=== PATIENT | male | born 1955 | race Caucasian/White ===

== ENCOUNTER 2016-11-26 09:54 | Outpatient (CLI) ==
[2014-12-25 14:57] VITALS: BMI 35.5
--- NOTE | 2016-11-26 11:21 | DI ---
EXAM: Pelvis and bilateral hips HISTORY: Acute right-sided low back pain COMPARISON: None TECHNIQUE: Single view pelvis and single frog-leg view right and left hip were performed FINDINGS: Sacroiliac joints intact. Sacral arcuate lines intact. There are degenerative changes i n the lumbar spine, incompletely imaged. Mild to moderate osteoarthritis right hip with joint space narrowing and osteophyte formation. Mild osteoarthritis left hip with joint space narrowing and os teophyte formation. No fracture. No focal soft tissue abnormality. IMPRESSION: 1. Mild to moderate osteoarthritis right hip and mild osteoarthritis left hip. 2. Degenerative changes in the lower spine, incompletely imaged.
--- NOTE | 2016-11-27 08:33 | MRI ---
EXAM: Lumbar spine MRI without contrast. HISTORY: Acute right-sided low back pain. COMPARISON: Lumbar spine MRI 05/14/[address] scan 12/25/2014. TECHNIQUE: Multiplanar, multisequence MR images were acquired of the lumbar spine without contrast. The study is degraded by decreased [id number] which limits spatial and contrast resolution. FINDINGS: Five lumbar-type vertebra are present. There is minor mid lumbar dextroscoliosis and acc entuation of the usual lumbar lordosis. There is 4.5 mm retrolisthesis of L2 on L3, 1.5 mm anteroli sthesis of L4 on L5 and 1.5 mm anterolisthesis of L5 on S1. Intrinsic bone marrow signal is heterog eneous due to fatty infiltration and degenerative endplate changes. Large ventral and lateral osteo phytes are present in the lower thoracic and lumbar spine and there is desiccation of the interverte bral discs. Disc space narrowing with moderate degenerative endplate changes are present from T10-1 1 through T12-L1. There is mild disc space narrowing and minor end plate irregularity at L1-2. At L2-3, there is osteophytosis with marked disc space narrowing and mild degenerative endplate changes which are greatest left laterally. There is mild to moderate posterior disc space narrowing at L3- 4 and L4-5. At L5-S1, there is irregularity of the S1 superior endplate and mild posterior disc spa ce narrowing with vacuum phenomenon. Chronic Schmorl's nodes are present from T10 to L3 and at S1. Conus medullaris ends at T12-L1 and has normal signal intensity. Canal diameter is developmentally narrow due to congenitally short pedicles. The visualized liver, spleen and kidneys are unremarkable. Increased fat is present in the medial p osterior paraspinous muscles from L2-3 to the sacrum in this patient who has undergone posterior dec ompressive hemilaminectomies at L2-3 and L3-4. T10-11: On the sagittal images, there is a mild diffuse disc osteophyte complex and a right paracen tral disc protrusion which effaces the right lateral recess and mildly indents the right ventrolater al thoracic cord without central canal stenosis. The neural foramina are poorly visualized. Howeve r, there is bilateral facet hypertrophy and probable moderate to marked bilateral foraminal stenosis . T11-12: There is a mild disc bulge with a poorly visualized probable small right posterolateral dis c protrusion that mildly effaces the right lateral recess. Mild left hypertrophic facet arthropathy is present. There is mild to moderate left neural foraminal stenosis. T12-L1: There is a mild disc bulge that is asymmetric to the right and a small left paracentral dis c extrusion that extends below the disc level. There is thickening of the dura along the anterior t hecal sac and of the annulus fibrosis which mildly effaces the anterior subarachnoid space. Mild bi lateral facet and ligamentum flavum hypertrophy is present. There is prominent dorsal epidural fat. This causes mild to moderate spinal stenosis and mild to moderate left and mild right neural babatunde inal stenosis. AP diameter of the thecal sac is 7.3 mm. L1-2: There is a mild disc bulge that is asymmetric to the left and mild bilateral hypertrophic fac et arthropathy and ligamentum flavum hypertrophy. There is prominent dorsal epidural fat and these findings cause moderate spinal stenosis and mild bilateral foraminal stenosis. AP diameter of the t hecal sac is 6.4 mm. L2-3: There are postoperative left hemilaminectomy and partial medial left facetectomy changes with partial resection of the lower half of the L2 posterior spinous process and in the L3 posterior spi nous process. There is a mild to moderate diffuse disc osteophyte complex with a small focus of sof t tissue signal that extends below the disc space in the midline compatible with a small focus of gr anulation tissue or herniated disc fragment. Residual right greater than left facet hypertrophy is present and there is moderate left and mild to moderate right neural foraminal stenosis. There is t riangulation of the thecal sac without spinal stenosis. L3-4: There are postoperative right greater than left partial medial facetectomy and right hemilami nectomy changes. There is a mild disc bulge that is asymmetric to the right with small posterior an d right lateral endplate osteophytes. Residual left greater than right hypertrophic facet arthropat hy is present and there is mild spinal stenosis with narrowing of the thecal sac laterally bilateral ly and mild to moderate left and marked right neural foraminal stenosis with encroachment on the rig ht L3 nerve exiting the neural foramen. L4-5: There is anterolisthesis of L4 on L5 and there is a pseudo disc bulge/posterior disc bulge wi th a small focus of more prominent soft tissue signal along the midline margin of the disc with hype rintense T2 signal. This may represent a small herniated disc fragment. Marked bilateral hypertrop hic facet arthropathy and ligamentum flavum hypertrophy is present and there is mild to moderate spi nal stenosis and moderate right and severe left neural foraminal stenosis with encroachment on both L4 nerves. AP diameter of the thecal sac is 7.3 mm. L5-S1: There is anterolisthesis of L5 on S1 and there is a minor diffuse disc bulge and marked righ t and moderate left hypertrophic facet arthropathy. There is marked narrowing of the thecal sac and moderate bilateral foraminal stenosis. There is encroachment on both L5 nerves exiting the neural foramina. IMPRESSION: 1. Extensive lumbar and lower thoracic degenerative spondylosis which has not significantly changed compared to 05/14/2016. 2. Mild L3-4, mild to moderate T12-L1 and L4-5, moderate L1-2 spinal stenosis and marked L5-S1 spin al stenosis. 3. Multilevel foraminal stenosis. 4. Postoperative decompressive laminectomy changes L2-3 and L3-4.
== END 2016-11-26 09:55 | disposition home or self-care (01) ==
LOC: RAD 09:54
PROVIDERS: ATTEND Family Medicine
DX: M54.41 Lumbago with sciatica, right side (principal)

== ENCOUNTER 2017-01-22 09:00 | Outpatient (RCR) ==
[2014-12-25 14:57] VITALS: BMI 35.5
--- NOTE | 2017-01-01 10:55 | RS.OPPTEV2 ---
Date of Note: 01/01/17 Visit #: 1 Date of Evaluation: 01/01/17 Payer Source: Medicaid Date of Onset/Injury/Change in Status: 11/02/16 Surgery Performed?: No Treatment Diagnosis: back pain with LLE radicular pain History of Condition/Mechanism of Injury:: had back surgery in 1985. He did well until last yr when he was on a ladder and his foot slipped causing him to fall. He was carrying a box while descending the ladder. He did not fall far but did land very hard on the floor. He was sent to the hospital and told he had a pinched nerve. He was given pain medication which he did not take very long. He states he did get better but did not completely achieve resolution of pain. He then began having worsening of the back pain a couple months ago and now has radicular pain down the LLE into his calf. He states he works at [employer] in the [place] and has to lift all the time. He believes this is what injured his back again. Prior Level of Function.....Patient was independent with: ADL's, Self Care, Work /Vocation, Caregiving, Ambulation/Mobility, Community Integration/Access Functional Limitations: Sleep, Self Care, ADL's, Reaching, Pushing, Pulling, Lifting, Carrying, Sitting, Standing, Bending, Squatting, Ambulation, Community Access/Integration Medical History Medical History: Hypertension, Diabetes, Arthritis Medical History Comments:: Kidney disease Surgical History: Lumbar Spine Surgical History Comments:: CTS with releases bilaterally. Smoking Status: Former smoker Diagnostic Testing/Imaging:: MRI recently demonstrated significant degenerative changes. He has testing to be performed on his kidneys this month to rule out problems. Hx Home Medications: zesteril Patient's Goals: Eliminate the back pain. Pain Assessment - Pain Description Pain Location: Center of lumbar spine with LLE radicular pain Pain Description: Burning Current Pain Intensity: 7/10 Worst Pain Intensity: 10/10 Other Comments regarding Pain:: Sitting relieves his pain completely. Functional Outcome Measure Oswestry LBP: 33 - G Codes & Severity Modifier G Codes & Modifier: NA Source of G Code score: NA Observation - Observation Posture: Decreased Lumbar Lordosis General Range of Motion: Bilateral hamstrings are minimally tight Muscle Strength: RLE 5/5 and LLE 4/5 - ROM Lumbar Flexion: Hand reach to Mid-Thighs Sidebending to Left: Reach to Lateral Joint Line Sidebending to Right: Reach to Lateral Joint Line Lumbar Spine ROM Limitations: Pain Comments: Significant pain with flexion - Special Tests SLR Test: Positive Left (SLR to 44 degrees) Seated Dural Stretch Test: Positive Left Palpation Palpation Findings: None/Normal Sensation - Sensation Left Lower Extremity: Impaired Sensation Description: Numbness (LLE all the way to the foot intermittently.) Interventions - Exercise/Activities/Manual Therapy Exercises/Activities: NA Manual Therapy: NA - Charges Total Direct Minutes: 45 Total Treatment Time: 45 Procedures billed for this date of service:: PT Esperanza (Medium) Assessment Assessment: Worsening lower back and LLE pain that is positive for neurotension signs. He has decreased lumbar and BLE ROM and minimal weakness of the LLE noted. Patient Education: Education of diagnosis, Body/Joint mechanics, Activity Modification, Education of Plan of Care Rehab Potential: Good Short Term Goals Goal #1: Patient independent in basic HEP. Goal to be met by: 01/16/17 Goal #2: Decrease pain symptoms 25% Goal to be met by: 01/16/17 Goal #3: Improve sleep quality 50% Goal to be met by: 01/16/17 Goal #4: Patient is able to stand for 20 minutes or more with minimal pain. Goal to be met by: 01/16/17 Software Engineering Specialist Goals Goal #1: Eliminate LLE radicular symptoms below the knee. Goal to be met by: 01/30/17 Goal #2: Average pain rating 3-4/10 and intermittent. Goal to be met by: 01/30/17 Goal #3: Oswestry LBP score 20/50 Goal to be met by: 01/30/17 Goal #4: Independent with DC HEP. Goal to be met by: 01/30/17 Plan - Treatment to be Provided Procedures: Therapeutic Exercises, Therapeutic Activity, Manual Therapy, Patient Education Modalities: Electrical Stimulation, Class IV Laser, Cryotherapy, Hot Packs - Treatment Plan Frequency: 3 X week Duration: 4 weeks ORDER # VISITS AND/OR THROUGH DATE: 01/30/2017 - Treatment Code (1) Lower back pain Qualifiers: Chronicity: chronic Back pain laterality: midline Sciatica presence : with sciatica Sciatica laterality: sciatica of left side Qualified Description: Chronic midline low back pain with left-sided sciatica Qualifier Code(s): (M54.42) Lumbago with sciatica, left side, (G89.29) Other chronic pain
--- NOTE | 2017-01-02 10:03 | RS.OPPTDN ---
Subjective Date of Note: 01/02/17 Visit #: 2 Date of Evaluation: 01/01/17 Payer Source: Medicaid Treatment Diagnosis: back pain with LLE radicular pain Current Subjective/complaints:: Reports tolerable pain this morning,but the pain tends to increase as the day progresses. Pain Assessment - Pain Description Pain Location: Center of lumbar spine with LLE radicular pain Pain Description: Burning, Dull, Aching Current Pain Intensity: 4/10 - Treatment Modality: Electrical Stim Unattended Parameters/Method Applied: 20 mins. high volt to lumbar and L gluteal area, channel 1 @ 135 pv to lumbar,channel 2 @ 140 pv to L gluteals. Patient Position: Supine - Heat/Cryotherapy Treatment: Hot Pack (concurrent with e-stim) Interventions - Exercise/Activities/Manual Therapy Exercises/Activities: 20 mins, instruction in SKTC,DKTC,90/90 hamstring stretches,piriformis stretches,LTR. Total minutes of Exercise: 20 Manual Therapy: NA Total minutes of Manual Therapy: 0 HOME EXERCISE PROGRAM: SKTC,DKTC,90/90 hamstringstretch,piriformis stretch, LTR.Recommended 2-3x/day in PAIN FREE ROM. - Charges Total Direct Minutes: 20 Total Treatment Time: 40 Procedures billed for this date of service:: hp,e-stim,ex 1 Assessment: Patient has increased pain in the L lumbar and L hip with piriformis stretches today.He has antalgic gait present when entering/exiting clinic.He is attentive to recommendations form the therapy staff. Patient Education: Education of diagnosis, Body/Joint mechanics, Home Exercise Program, Home Safety, Activity Modification, Education of Plan of Care Patient demonstrates compliance with HEP?: Yes (Initiated today.) Short Term Goals Goal #1: Patient independent in basic HEP. Goal to be met by: 01/16/17 Progress towards Goal:: Progressing Goal #2: Decrease pain symptoms 25% Goal to be met by: 01/16/17 Goal #3: Improve sleep quality 50% Goal to be met by: 01/16/17 Goal #4: Patient is able to stand for 20 minutes or more with minimal pain. Goal to be met by: 01/16/17 Detention Goals Goal #1: Eliminate LLE radicular symptoms below the knee. Goal to be met by: 01/30/17 Goal #2: Average pain rating 3-4/10 and intermittent. Goal to be met by: 01/30/17 Goal #3: Oswestry LBP score 20/50 Goal to be met by: 01/30/17 Goal #4: Independent with DC HEP. Goal to be met by: 01/30/17 Plan PLAN OF CARE EXPIRES ON:: 01/30/17 ORDER # VISITS AND/OR THROUGH DATE: 01/30/2017 PLAN: Continue Plan of Care
--- NOTE | 2017-01-06 10:08 | RS.OPPTDN ---
Subjective Date of Note: 01/06/17 Visit #: 3 Date of Evaluation: 01/01/17 Payer Source: Medicaid Treatment Diagnosis: back pain with LLE radicular pain Current Subjective/complaints:: Patient reports doing his stretches at home , has muscle soreness in the upper thighs. Pain Assessment - Pain Description Pain Location: Center of lumbar spine with LLE radicular pain Pain Description: Burning, Dull, Aching Current Pain Intensity: 3 at rest,elevates the longer he is on his feet. Worst Pain Intensity: 7-8 - Treatment Modality: Electrical Stim Unattended Parameters/Method Applied: 20 mins. high volt,channel 1 @ 150 pv,channel 2 @ 165 pv to lumbar and L hip. Patient Position: Supine - Heat/Cryotherapy Treatment: Hot Pack (concurrent with e-stim) Interventions - Exercise/Activities/Manual Therapy Exercises/Activities: 20 mins, of SKTC,DKTC,90/90 hamstring stretches, piriformis stretches,LTR.Added SI muscle energy exercises of resisted hip flexion,resisted knee extension in hooklying. Total minutes of Exercise: 20 Manual Therapy: NA Total minutes of Manual Therapy: 0 HOME EXERCISE PROGRAM: SKTC,DKTC,90/90 hamstringstretch,piriformis stretch, LTR.Recommended 2-3x/day in PAIN FREE ROM. - Charges Total Direct Minutes: 20 Total Treatment Time: 40 Procedures billed for this date of service:: hp,e-stim,ex 1 Assessment: Patient has improved hamstring extensibility today .He reports stretch discomfort ,but no elevated back pain with exercises.He is motivated to improve.His job requires standing for long periods on concrete floors at [employer],and the pain elevates the longer he is on his feet. Patient Education: Education of diagnosis, Body/Joint mechanics, Home Exercise Program, Home Safety, Activity Modification, Education of Plan of Care Patient demonstrates compliance with HEP?: Yes Short Term Goals Goal #1: Patient independent in basic HEP. Goal to be met by: 01/16/17 Progress towards Goal:: Progressing Goal #2: Decrease pain symptoms 25% Goal to be met by: 01/16/17 Progress towards Goal:: Progressing Goal #3: Improve sleep quality 50% Goal to be met by: 01/16/17 Goal #4: Patient is able to stand for 20 minutes or more with minimal pain. Goal to be met by: 01/16/17 Custodial Goals Goal #1: Eliminate LLE radicular symptoms below the knee. Goal to be met by: 01/30/17 Goal #2: Average pain rating 3-4/10 and intermittent. Goal to be met by: 01/30/17 Goal #3: Oswestry LBP score 20/50 Goal to be met by: 01/30/17 Goal #4: Independent with DC HEP. Goal to be met by: 01/30/17 Plan PLAN OF CARE EXPIRES ON:: 01/30/17 ORDER # VISITS AND/OR THROUGH DATE: 01/30/2017 PLAN: Continue Plan of Care
--- NOTE | 2017-01-08 09:59 | RS.OPPTDN ---
Subjective Date of Note: 01/08/17 Visit #: 4 Date of Evaluation: 01/01/17 Payer Source: Medicaid Treatment Diagnosis: back pain with LLE radicular pain Current Subjective/complaints:: Patient reports the pain level increases as the day progresses at work due to walking alot on concrete floors. Pain Assessment - Pain Description Pain Location: Center of lumbar spine with LLE radicular pain Pain Description: Burning, Dull, Aching Current Pain Intensity: 3 at rest,elevates the longer he is on his feet. - Treatment Modality: Electrical Stim Unattended Parameters/Method Applied: 20 mins. high volt to lumbar,channel 1 @ 145 pv, channel 2 @ 155 pv. Patient Position: Supine - Heat/Cryotherapy Treatment: Hot Pack (concurrent with e-stim) Interventions - Exercise/Activities/Manual Therapy Exercises/Activities: 20 mins, HEP review of stretches,then instructed in postural pullbacks at different levels using black theraband,recommended 3/15 reps.,2-3 x/day. Total minutes of Exercise: 20 Manual Therapy: NA Total minutes of Manual Therapy: 0 HOME EXERCISE PROGRAM: SKTC,DKTC,90/90 hamstringstretch,piriformis stretch, LTR.Recommended 2-3x/day in PAIN FREE ROM. - Charges Total Direct Minutes: 20 Total Treatment Time: 40 Procedures billed for this date of service:: hp,e-stim,ex Assessment: Patient has good return demo of theraband exercises today,continues to be motivated to improve.His morning pain is less intense,and it continues to vary based upon the amount of activity at work ,especially with prolonged standing. Patient Education: Education of diagnosis, Body/Joint mechanics, Home Exercise Program, Home Safety, Activity Modification, Education of Plan of Care Patient demonstrates compliance with HEP?: Yes Short Term Goals Goal #1: Patient independent in basic HEP. Goal to be met by: 01/16/17 Progress towards Goal:: Progressing Goal #2: Decrease pain symptoms 25% Goal to be met by: 01/16/17 Progress towards Goal:: Progressing Goal #3: Improve sleep quality 50% Goal to be met by: 01/16/17 Goal #4: Patient is able to stand for 20 minutes or more with minimal pain. Goal to be met by: 01/16/17 Progress towards Goal:: Progressing [employer] Goals Goal #1: Eliminate LLE radicular symptoms below the knee. Goal to be met by: 01/30/17 Goal #2: Average pain rating 3-4/10 and intermittent. Goal to be met by: 01/30/17 Progress towards goal: Progressing Goal #3: Oswestry LBP score 20/50 Goal to be met by: 01/30/17 Goal #4: Independent with DC HEP. Goal to be met by: 01/30/17 Progress towards goal: Progressing Plan PLAN OF CARE EXPIRES ON:: 01/30/17 ORDER # VISITS AND/OR THROUGH DATE: 01/30/2017 PLAN: Continue Plan of Care
--- NOTE | 2017-01-12 09:45 | RS.OPPTDN ---
Subjective Date of Note: 01/12/17 Visit #: 5 Date of Evaluation: 01/01/17 Payer Source: Medicaid Treatment Diagnosis: back pain with LLE radicular pain Current Subjective/complaints:: Patient states he is doing fine this morning. States standing on concrete at work really aggravates his back. States when he sits on the couch at home, he can get a little relief by sitting with the left LE tucked under him. Reports by the time he works his shift, his pain is bad. States he is performing his exercises at home. Pain Assessment - Pain Description Pain Location: Center of lumbar spine with LLE radicular pain Pain Description: Burning, Dull, Aching Current Pain Intensity: 3 at rest,elevates the longer he is on his feet. - Treatment Modality: Electrical Stim Unattended Parameters/Method Applied: 4 large pads, one lead across the lumbar spine and one lead to left SI and superior gluteal region X 20 mins HVGS. Peak volts up to 200 Patient Position: Supine - Heat/Cryotherapy Treatment: Hot Pack (with Estim to low back) Interventions - Exercise/Activities/Manual Therapy Exercises/Activities: X 12 mins, Assisted with stretching to bilateral LE's of HS, SKTC, and piriformis. Left Piriformis is tight compared to the right. Manual Therapy: NA HOME EXERCISE PROGRAM: SKTC,DKTC,90/90 hamstringstretch,piriformis stretch, LTR.Recommended 2-3x/day in PAIN FREE ROM. - Charges Total Direct Minutes: 12 mins Total Treatment Time: 32 mins Procedures billed for this date of service:: Hp, Estim, EX Assessment: Patient reports continued pain in low back and LLE with working on concrete. He presents to be compliant with HEP. Patient demonstrates compliance with HEP?: Yes Short Term Goals Goal #1: Patient independent in basic HEP. Goal to be met by: 01/16/17 Progress towards Goal:: Progressing Goal #2: Decrease pain symptoms 25% Goal to be met by: 01/16/17 Progress towards Goal:: Progressing Goal #3: Improve sleep quality 50% Goal to be met by: 01/16/17 Goal #4: Patient is able to stand for 20 minutes or more with minimal pain. Goal to be met by: 01/16/17 Progress towards Goal:: Progressing Director Data Analytics Goals Goal #1: Eliminate LLE radicular symptoms below the knee. Goal to be met by: 01/30/17 Goal #2: Average pain rating 3-4/10 and intermittent. Goal to be met by: 01/30/17 Progress towards goal: Progressing Goal #3: Oswestry LBP score 20/50 Goal to be met by: 01/30/17 Goal #4: Independent with DC HEP. Goal to be met by: 01/30/17 Progress towards goal: Progressing Plan PLAN OF CARE EXPIRES ON:: 01/30/17 ORDER # VISITS AND/OR THROUGH DATE: 01/30/2017 PLAN: Continue Plan of Care
--- NOTE | 2017-01-15 10:25 | RS.OPPTDN ---
Subjective Date of Note: 01/15/17 Visit #: 6 Date of Evaluation: 01/01/17 Payer Source: Medicaid Treatment Diagnosis: back pain with LLE radicular pain Current Subjective/complaints:: Patient feels the therapy is helping ,and the pain is more localized,pointing the borders of his sacrum.He is inquiring about doing crunches.He is instructed to do them in a short ROM if pain free. Pain Assessment - Pain Description Pain Location: Center of lumbar spine with LLE radicular pain Pain Description: Burning, Dull, Aching Current Pain Intensity: 3 at rest,elevates the longer he is on his feet. Worst Pain Intensity: 6 at work ,later in the day. - Treatment Modality: Electrical Stim Unattended Parameters/Method Applied: 20 mins. high volt,to lumbar,channel 1 @ 145 pv, channel 2 @ 140 pv. Patient Position: Supine - Heat/Cryotherapy Treatment: Hot Pack (concurrent with e-stim) Interventions - Exercise/Activities/Manual Therapy Exercises/Activities: X 10 mins, Assisted with stretching to bilateral LE's of HS, SKTC, and piriformis. Left Piriformis is tight compared to the right.Patient gives return demo of abdominal crunches correctly at end of session. Total minutes of Exercise: 10 Manual Therapy: NA Total minutes of Manual Therapy: 0 HOME EXERCISE PROGRAM: SKTC,DKTC,90/90 hamstringstretch,piriformis stretch, LTR.Recommended 2-3x/day in PAIN FREE ROM. - Charges Total Direct Minutes: 10 Total Treatment Time: 30 Procedures billed for this date of service:: hp,e-stim,ex 1 Assessment: Patient progresing ,has much improved hamstring extensibility.He reports no increased back pain with exercises in supine or hooklying.He is compliant to HEP and highly motivated to improve. Patient Education: Education of diagnosis, Body/Joint mechanics, Home Exercise Program, Home Safety, Activity Modification, Education of Plan of Care Patient demonstrates compliance with HEP?: Yes Short Term Goals Goal #1: Patient independent in basic HEP. Goal to be met by: 01/16/17 Progress towards Goal:: Partially Met Goal #2: Decrease pain symptoms 25% Goal to be met by: 01/16/17 Progress towards Goal:: Progressing Goal #3: Improve sleep quality 50% Goal to be met by: 01/16/17 Progress towards Goal:: Progressing Goal #4: Patient is able to stand for 20 minutes or more with minimal pain. Goal to be met by: 01/16/17 Progress towards Goal:: Progressing Director Regulatory Compliance Goals Goal #1: Eliminate LLE radicular symptoms below the knee. Goal to be met by: 01/30/17 Progress towards goal: Progressing Goal #2: Average pain rating 3-4/10 and intermittent. Goal to be met by: 01/30/17 Progress towards goal: Progressing Goal #3: Oswestry LBP score 20/50 Goal to be met by: 01/30/17 Goal #4: Independent with DC HEP. Goal to be met by: 01/30/17 Progress towards goal: Progressing Plan PLAN OF CARE EXPIRES ON:: 01/30/17 ORDER # VISITS AND/OR THROUGH DATE: 01/30/2017 PLAN: Continue Plan of Care
--- NOTE | 2017-01-20 10:05 | RS.OPPTDN ---
Subjective Date of Note: 01/20/17 Visit #: 7 Date of Evaluation: 01/01/17 Payer Source: Medicaid Treatment Diagnosis: back pain with LLE radicular pain Current Subjective/complaints:: Patient enters clinic today with guarded posture ,along with antalgic gait.Reports working for 10 hours and 15 mins. at [employer] yesterday. Pain Assessment - Pain Description Pain Location: Center of lumbar spine with LLE radicular pain Pain Description: Burning, Dull, Aching Current Pain Intensity: 6-7 with walking today - Treatment Modality: Electrical Stim Unattended Parameters/Method Applied: 20 mins. high volt ,channel 1 and 2 @ 205 pv. Patient Position: Supine - Heat/Cryotherapy Treatment: Hot Pack (concurrent with e-stim) Interventions - Exercise/Activities/Manual Therapy Exercises/Activities: X 20 mins, Assisted with stretching to bilateral LE's of HS, SKTC, and piriformis,emphasis on L piriformis as it is tighter than the R. Total minutes of Exercise: 20 Manual Therapy: NA Total minutes of Manual Therapy: 0 HOME EXERCISE PROGRAM: SKTC,DKTC,90/90 hamstringstretch,piriformis stretch, LTR.Recommended 2-3x/day in PAIN FREE ROM. - Charges Total Direct Minutes: 20 Total Treatment Time: 40 Procedures billed for this date of service:: hp,e-stim,ex 1 Assessment: Patient is more guarded today due to increased low back pain , especially the L lumbar area.He does have improved LTR in hooklying position, less antalgic gait after PT session. Patient Education: Education of diagnosis, Body/Joint mechanics, Home Exercise Program, Home Safety, Activity Modification, Education of Plan of Care Patient demonstrates compliance with HEP?: Yes Short Term Goals Goal #1: Patient independent in basic HEP. Goal to be met by: 01/16/17 Progress towards Goal:: Partially Met Goal #2: Decrease pain symptoms 25% Goal to be met by: 01/16/17 Progress towards Goal:: Progressing Goal #3: Improve sleep quality 50% Goal to be met by: 01/16/17 Progress towards Goal:: Progressing Goal #4: Patient is able to stand for 20 minutes or more with minimal pain. Goal to be met by: 01/16/17 Progress towards Goal:: Progressing Residential Goals Goal #1: Eliminate LLE radicular symptoms below the knee. Goal to be met by: 01/30/17 (radiculopathy below the knee this AM) Progress towards goal: Regressing Goal #2: Average pain rating 3-4/10 and intermittent. Goal to be met by: 01/30/17 (6-7 tioday) Progress towards goal: Regressing Goal #3: Oswestry LBP score 20/50 Goal to be met by: 01/30/17 Goal #4: Independent with DC HEP. Goal to be met by: 01/30/17 Progress towards goal: Progressing Plan PLAN OF CARE EXPIRES ON:: 01/30/17 ORDER # VISITS AND/OR THROUGH DATE: 01/30/2017 PLAN: Continue Plan of Care
--- NOTE | 2017-01-22 10:10 | RS.OPPTDC ---
Date of Discharge: 01/22/17 Date of Evaluation: 01/01/17 Number of Visits: 8 Treatment Diagnosis: back pain with LLE radicular pain Current Level of Function: Independent in community,reports daily back pain which varies in intnsity. Current Complaints/Gains: Patient reports he is doing his exercises as tolerated ,feels better today.Walking on the concrete at his job elevates his pain as the day progresses. Pain Assessment - Pain Description Pain Location: Center of lumbar and L gluteals. Pain Description: Dull, Aching Current Pain Intensity: 2/10 Worst Pain Intensity: 8 while working and at end of day. Functional Outcome Measure Oswestry LBP: 27 - G Codes & Severity Modifier G Codes & Modifier: NA Source of G Code score: NA Observation - Observation Posture: Forward Head, Decreased Lumbar Lordosis Gait - Gait Pattern General Gait Pattern Observation: Antalgic Gait - Treatment Modality: Electrical Stim Unattended Parameters/Method Applied: 20 mins. high volt ,channel 1 and 2 @ 215pv. Patient Position: Supine - Heat/Cryotherapy Treatment: Hot Pack (concurrent with e-stim) Interventions - Exercise/Activities/Manual Therapy Exercises/Activities: HEP review while on moist heat. Total minutes of Exercise: 5 Manual Therapy: NA Total minutes of Manual Therapy: 0 HOME EXERCISE PROGRAM: SKTC,DKTC,90/90 hamstringstretch,piriformis stretch, LTR.Recommended 2-3x/day in PAIN FREE ROM. - Charges Total Direct Minutes: 0 Total Treatment Time: 25 Procedures billed for this date of service:: hp,e-stim Assessment Assessment: Patient has good understanding of HEp,his pain intensity has improved,but continues to vary ,especially at work due to prolonged standing.He reports tolerating sitting for longer time periods with less pain.He also is sleeping better.He is aware of D/C plan today. Patient Education: Education of diagnosis, Body/Joint mechanics, Home Exercise Program, Home Safety, Activity Modification, Education of Plan of Care Rehab Potential: Fair Short Term Goals Goal #1: Patient independent in basic HEP. Goal to be met by: 01/16/17 Progress towards Goal:: Met Goal #2: Decrease pain symptoms 25% Goal to be met by: 01/16/17 Progress towards Goal:: Met Goal #3: Improve sleep quality 50% Goal to be met by: 01/16/17 Progress towards Goal:: Partially Met Goal #4: Patient is able to stand for 20 minutes or more with minimal pain. Goal to be met by: 01/16/17 Progress towards Goal:: Progressing Golf Coach Goals Goal #1: Eliminate LLE radicular symptoms below the knee. Goal to be met by: 01/30/17 Progress towards goal: Partially Met Goal #2: Average pain rating 3-4/10 and intermittent. Goal to be met by: 01/30/17 (2/10) Progress towards goal: Progressing Goal #3: Oswestry LBP score 20/50 Goal to be met by: 01/30/17 (27) Progress towards goal: Not Met Goal #4: Independent with DC HEP. Goal to be met by: 01/30/17 Progress towards goal: Met Plan Reason for Discharge:: No Further Skilled Therapy Indicated
== END 2017-01-30 ==
PROVIDERS: ATTEND Ophthalmology Ophthalmic Plastic and Reconstructive Surgery
DX: M54.42 Lumbago with sciatica, left side (principal); G89.29 Other chronic pain

== ENCOUNTER 2017-07-22 14:21 | Outpatient (CLI) ==
[2014-12-25 14:57] VITALS: BMI 35.5
--- NOTE | 2017-07-22 15:20 | DI ---
EXAM: Three views of the right shoulder. History: Right shoulder pain. Findings: No acute fracture or dislocation. Moderate narrowing of the right AC joint. Mild to mode rate narrowing of the right glenohumeral joint. Sclerosis and cystic change within the superior late ral aspect of the humeral head. Impression: 1. No acute osseous abnormality. 2. Rotator cuff disease. 3. Mild to moderate arthritis.
== END 2017-07-22 14:22 | disposition home or self-care (01) ==
LOC: RAD 14:21
PROVIDERS: ATTEND Family Medicine
DX: M25.511 Pain in right shoulder (principal)

== ENCOUNTER 2018-11-22 08:39 | Outpatient (CLI) ==
[2018-10-11 04:39] VITALS: BMI 37.5
--- NOTE | 2018-11-22 17:12 | MRI ---
EXAM: Lumbar spine MRI without contrast. HISTORY: Lumbar spinal stenosis. COMPARISON: Lumbar spine MRI 11/26/2016. TECHNIQUE: Multiplanar, multisequence MR images were acquired of the lumbar spine without contrast. FINDINGS: Five non-rib bearing lumbar vertebra are present. Conus medullaris ends at T12-L1 and has normal morphology and signal intensity. Canal diameter is developmentally narrow. There is minor m id lumbar dextroscoliosis and accentuation of the usual lumbar lordosis with 6 mm retrolisthesis of L 2 on L3, increased from 4.5 mm on the prior MRI. There is stable 1.5 mm anterolisthesis of L4 on L5 and 2 mm anterolisthesis of L5 on S1. The lumbar vertebra are normal in height and intrinsic bone ma rrow signal. Ventral and lateral endplate osteophytes are present in the lumbar spine and there is d esiccation of the lumbar intervertebral discs. At L2-3, there is a diffuse disc osteophyte complex t hat is asymmetric to the left with moderate to marked disc space narrowing and mild left lateral endp late irregularity with mild left anterolateral modic type 3 endplate changes. Mild to moderate poste rior disc space narrowing is present at L3-4 and L4-5 without change and there is endplate irregulari ty at L5-S1 with a prominent chronic Schmorl's node along the right S1 superior endplate. Chronic Sc hmorl's nodes are present from T10-L3 and at S1. The partially visualized liver, spleen, adrenal glands and kidneys are unremarkable. Increased fat i s present in the medial posterior paraspinous muscles from L2 to the mid sacrum in this patient who h as undergone previous posterior decompression at L2-3 and L3-4. T12-L1: There is a mild disc bulge and a stable small to moderate left paracentral disc extrusion wi th inferior migration and mild bilateral hypertrophic facet arthropathy and ligamentum flavum hypertr ophy. There is abundant dorsal epidural fat and there is mild to moderate central canal stenosis and mild to moderate bilateral foraminal stenosis. AP diameter of the thecal sac is 7.6 mm. L1-2: There is a mild disc bulge that is asymmetric to the left with a small left posterolateral dis c protrusion that effaces the left lateral recess where it may adversely contact the left L2 nerve ro ots . Mild bilateral hypertrophic facet arthropathy and ligamentum flavum hypertrophy is present. T here are moderate left anterolateral endplate osteophytes and abundant dorsal epidural fat. These fi ndings cause stable moderate central canal stenosis and mild bilateral foraminal stenosis. AP diamet er of the thecal sac is 6.1 mm compared to 6.4 mm previously. L2-3: There is 6 mm retrolisthesis of L2 on L3, increased from previously and there is a diffuse spo ndylotic disc bulge with endplate osteophytes and a small focal area of soft tissue signal along the midline margin of the disc that extends inferiorly without change which may represent granulation tis paty or residual/recurrent disc herniation. There are postoperative left hemilaminectomy and partial medial left facetectomy changes with partial resection of the inferior L2 and complete resection of t he L3 posterior spinous process. There is mild to moderate right and moderate left neural foraminal stenosis. There is no central canal stenosis. L3-4: There is a mild diffuse disc bulge with endplate osteophytes that is greatest posteriorly and there is a small right foraminal disc protrusion which encroaches on the right L3 nerve. There are p ostoperative bilateral medial hemilaminectomy and partial facetectomy changes, greater on the right. These findings cause mild spinal stenosis, bilateral lateral recess stenosis where there may be encr oachment on the L4 nerve roots and moderate left and marked right neural foraminal stenosis. AP diam eter of the thecal sac is 8.6 mm. L4-5: There is stable anterolisthesis of L4 on L5 which produces a mild disc bulge/pseudo disc bulge and a possible small central disc protrusion. Severe bilateral hypertrophic facet arthropathy and l igamentum flavum hypertrophy is present and there is moderately severe central canal stenosis and mod erate right and moderately severe left neural foraminal stenosis. The thecal sac measures 5.6 mm AP by 2.7 mm TX. L5-S1: There is anterolisthesis of L5 on S1 and there is a small posterior disc bulge with endplate osteophytes and moderately severe right and moderate left hypertrophic facet arthropathy and ligament um flavum hypertrophy. There is a very small thecal sac at this level which measures 2.5 mm in AP di ameter. Moderate bilateral foraminal stenosis is present, greater on the right with encroachment on both exiting L5 nerves. IMPRESSION: 1. Extensive lumbar degenerative spondylosis with 6 mm degenerative retrolisthesis of L2 on L3 which has mildly increased compared to previously. 2. Stable bilateral decompressive medial hemilaminectomy and partial facetectomy changes at L3-4 and postoperative left hemilaminectomy and partial medial left facetectomy changes at L2-3. 3. Mild L3-4, mild to moderate T12-L1, moderately severe at L4-5 and severe L5-S1 spinal stenosis. 4. Multilevel foraminal stenosis. 5. Small left posterolateral disc protrusion L1-2 which encroaches on the left L2 nerve roots and sm all right foraminal disc protrusion L3-4 that encroaches on the right L3 nerve.
== END 2018-11-22 08:40 | disposition home or self-care (01) ==
LOC: RAD 08:39
PROVIDERS: ATTEND Physician Assistant
DX: M48.061 Spinal stenosis, lumbar region without neurogenic claudication (principal)